=== PATIENT | female | born 1965 | race Caucasian/White ===

== ENCOUNTER 2019-12-06 12:17 | Emergency (ER) | payer OTHER ==
[~2019-12-06] VITALS: Ht 162.6 cm; Wt 57.6 kg
[2019-12-06] MEDS ORDERED: HYDROXYZINE HCL25 M2 PO (13:01)
[2019-12-06 13:23] VITALS: BP 133/73
--- NOTE | 2019-12-06 16:29 | EKG ---
[place] [address] ELECTROCARDIOGRAM REPORT Name: AZK SCOTT Room: 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 : 1965 Requested By: Elly Guido Order Number: [id number] Debbie MD: Chaim Sanchez Measurements Intervals [place] Rate: 85 P: 80 [place]: 163 QRS: 77 QRSD: 77 T: 49 QT: 372 QTc: 443 Interpretive Statements Sinus rhythm Ventricular premature complex Anterior infarct, old Borderline ST elevation, lateral leads No previous ECG available for comparison Electronically Signed On 12-06-2019 16:27:13 CDT by Chaim Sanchez [email or web address] <ELECTRONICALLY SIGNED> By: Chaim Sanchez MD, [facility] 12/06/19 1627 1225 1225 Chaim Sanchez MD, [facility] /EPI
== END 2019-12-06 13:25 ==
LOC: M.ERS 12:17
DX: G43.909 Migraine, unspecified, not intractable, without status migrainosus (principal); F41.9 Anxiety disorder, unspecified; J44.9 Chronic obstructive pulmonary disease, unspecified; F17.210 Nicotine dependence, cigarettes, uncomplicated; Z90.710 Acquired absence of both cervix and uterus; Z90.49 Acquired absence of other specified parts of digestive tract; Z88.6 Allergy status to analgesic agent; Z88.8 Allergy status to other drugs, medicaments and biological substances